=== PATIENT | female | born 1960 | race Caucasian/White ===

== ENCOUNTER 2023-11-20 17:22 | Inpatient (IN) | payer MEDICAID ==
[~2023-11-20] VITALS: Ht 165.1 cm; Wt 101.0 kg
[2023-11-20 18:56] LABS: BASOPHILS % (AUTO) 0.6 % (0-1); EOSINOPHILS # (AUTO) 0.2 X10'3 (0-0.9); EOSINOPHILS % (AUTO) 4.1 % (0-6); HEMATOCRIT 42.3 % (35.0-45.0); HEMOGLOBIN 14.2 g/dl (12.0-16.0); LYMPHOCYTES # (AUTO) 1.9 X10'3 (1.1-4.8); LYMPHOCYTES % (AUTO) 32.1 % (21-51); MEAN CORPUSCULAR HEMOGLOBIN 29.4 PG (27.0-31.0); MEAN CORPUSCULAR HGB CONC 33.6 g/dL (33.0-36.5); MEAN CORPUSCULAR VOLUME 87.4 FL (78-98); MEAN PLATELET VOLUME 7.4 FL (7.4-10.4); MONOCYTES # (AUTO) 0.5 X10'3 (0-0.9); MONOCYTES % (AUTO) 8.3 % (2-12); NEUTROPHILS # (AUTO) 3.3 X10'3 (1.8-7.7); NEUTROPHILS % (AUTO) 54.9 % (42-75); PLATELET COUNT 168 X10'3 (140-440); RED BLOOD COUNT 4.83 X10'6 (4.20-5.60)
[2023-11-20 19:20] LABS: ALBUMIN 3.8 G/DL (3.4-5.0); ANION GAP 9 (8-16); BLOOD UREA NITROGEN 19 MG/DL (7-18); BUN/CREATININE RATIO 22.9 (10.0-20.0); CALCIUM 8.7 MG/DL (8.5-10.1); CHLORIDE 106 MMOL/L (99-107); CREATININE 0.83 MG/DL (0.40-0.90); GLUCOSE 110 MG/DL (70-104); MAGNESIUM 2.1 MG/DL (1.5-2.4); POTASSIUM 3.7 MMOL/L (3.5-5.1); PRO BRAIN NATRIURETIC PEPTIDE 930 PG/ML (0-125); SODIUM 144 MMOL/L (135-145); TOTAL CARBON DIOXIDE 29.3 MMOL/L (24-32); eCRCL 62 ML/MIN; eGFR 69 ML/MIN
[2023-11-20] MEDS ORDERED: niCARdipine I.V. 50 MG in normal saline 250ml IV soln 230 ML IV SCH (20:45)
[2023-11-20] MEDS ORDERED: NORMAL SALINE IV SCH (20:55)
[2023-11-20] MEDS ORDERED: [UNRECOGNIZED DRUG - OTHER] IV SCH (20:55)
[2023-11-20] MEDS ORDERED: niCARDipine-NS 40mg/200ml IVPB 200 ML IV SCH (20:55)
[2023-11-20 20:57] LABS: D-DIMER 0.43 MG/L FEU (0-0.50)
[2023-11-20] MEDS ORDERED: temazepam 15mg capsule PO PRN (21:00)
[2023-11-20] MEDS: furosemide 10 MG/1 ML 10ml inj IV ONE (21:06)
[2023-11-20] MEDS ORDERED: diphenhydrAMINE 50 mg/ml inj IV PRN (22:15)
[2023-11-20] MEDS ORDERED: morphine 2 MG/ML inj. syringe IV PRN ×2 (22:15)
[2023-11-20] MEDS ORDERED: mag hydrox/Alum hydrox/simeth 30ml oral suspension PO PRN (22:15)
[2023-11-20] MEDS: sodium chloride 0.45% 1,000 ML IV SCH (22:15)
[2023-11-20] MEDS ORDERED: magnesium hydroxide 30ml (MOM) UD suspension PO PRN (22:15)
[2023-11-20] MEDS ORDERED: HYDROcodone/acetaminophen 5mg/325mg tablet PO PRN (22:15)
[2023-11-20] MEDS ORDERED: HYDROcodone/acetaminophen 10/325mg tab PO PRN (22:15)
[2023-11-20] MEDS ORDERED: bisacodyl 10mg suppository rectal RC PRN (22:15)
[2023-11-20] MEDS ORDERED: acetaminophen 650mg rectal suppository RC PRN (22:15)
[2023-11-20] MEDS ORDERED: ondansetron/PF 4mg/2ml inj IV PRN (22:15)
[2023-11-20] MEDS ORDERED: acetaminophen 325mg tablet PO PRN (22:15)
[2023-11-20] MEDS ORDERED: ondansetron 4mg rapidly disintigrating tab PO PRN (22:15)
[2023-11-20] MEDS ORDERED: DEXTROSE 15 GM of carb/4 tabs (each vial/BOTTLE has 4 tablets) PO PRN ×2 (22:35)
[2023-11-20] MEDS ORDERED: insulin Lispro (HumaLOG) vial - multi-dose SQ SCH (22:35)
[2023-11-20] MEDS: MESSAGE TO PHARMACY PO ONE (22:35)
[2023-11-20] MEDS ORDERED: glucagon, human recombinant 1mg kit SUBCUT PRN (22:35)
[2023-11-20] MEDS ORDERED: dextrose 50%-water 50ml dispensing syringe IV PRN ×2 (22:35)
[2023-11-20 22:45] LABS: HEMOGLOBIN A1C 6.2 % (4.5-6.2)
[2023-11-20 22:46] LABS: APTT 25 SECONDS (22-32); PROTHROMBIN TIME 10.6 SECONDS (9.0-12.0)
[2023-11-20 23:16] LABS: PHOSPHORUS 5.1 MG/DL (2.3-4.5); THYROID STIMULATING HORMONE 2.06 ulU/ml (0.34-4.50)
[2023-11-21] MEDS: heparin, porcine 5000 units/ml vial SQ SCH (00:44)
[2023-11-21 00:50] LABS: BILIRUBIN,URINE NEGATIVE (Neg); CLARITY,URINE CLEAR (Clear); COLOR,URINE STRAW (Yellow); GLUCOSE, URINE >=1000 mg/dl (Neg); KETONES,URINE NEGATIVE (Neg); LEUKOCYTE ESTERASE ,URINE NEGATIVE (Neg); NITRITES, URINE NEGATIVE (Neg); OCCULT BLOOD,URINE NEGATIVE (Neg); PH,URINE 5.5 (4.8-8.0); PROTEIN,URINE NEGATIVE (Neg); UROBILINOGEN,URINE 0.2 E.U/dL (0.2-1.0)
[2023-11-21 00:55] LABS: UA COLLECTION TYPE CLN CATCH MIDSTREAM
[2023-11-21 00:58] LABS: BACTERIA,URINE NONE SEEN /HPF (Neg); RBC,URINE 0-2 /HPF (0-2); SQUAMOUS EPITHELIAL CELL,UR FEW /LPF (FEW); WBC,URINE 0-4 /HPF (0-4)
[2023-11-21 01:00] LABS: STARCH,URINE FEW /HPF (NEGATIVE)
[2023-11-21] MEDS ORDERED: METF-437 PO (01:42)
[2023-11-21] MEDS ORDERED: FLUT1BLS12 (01:42)
[2023-11-21] MEDS ORDERED: ASPI-1265 PO (01:42)
[2023-11-21] MEDS ORDERED: ALBU8HFA INH (01:42)
[2023-11-21] MEDS ORDERED: GABA600T13 PO (01:42)
[2023-11-21] MEDS ORDERED: EMPA25TA PO (01:42)
[2023-11-21] MEDS ORDERED: LOSA25TA41 PO (01:42)
[2023-11-21] MEDS ORDERED: CARV25TA2 PO (01:42)
[2023-11-21] MEDS ORDERED: SERT-434 PO (01:42)
[2023-11-21] MEDS ORDERED: ATOR-2 PO (01:42)
[2023-11-21] MEDS ORDERED: LORA-949 PO (01:42)
[2023-11-21] MEDS ORDERED: albuterol 2.5 MG/3 ML nebule NEB PRN (01:55)
[2023-11-21 06:45] LABS: BASOPHILS % (AUTO) 0.2 % (0-1); EOSINOPHILS # (AUTO) 0.3 X10'3 (0-0.9); EOSINOPHILS % (AUTO) 4.8 % (0-6); HEMATOCRIT 40.9 % (35.0-45.0); HEMOGLOBIN 13.7 g/dl (12.0-16.0); LYMPHOCYTES # (AUTO) 1.9 X10'3 (1.1-4.8); LYMPHOCYTES % (AUTO) 34.2 % (21-51); MEAN CORPUSCULAR HEMOGLOBIN 29.2 PG (27.0-31.0); MEAN CORPUSCULAR HGB CONC 33.5 g/dL (33.0-36.5); MEAN CORPUSCULAR VOLUME 87.3 FL (78-98); MEAN PLATELET VOLUME 7.6 FL (7.4-10.4); MONOCYTES # (AUTO) 0.5 X10'3 (0-0.9); MONOCYTES % (AUTO) 9.7 % (2-12); NEUTROPHILS # (AUTO) 2.8 X10'3 (1.8-7.7); NEUTROPHILS % (AUTO) 51.1 % (42-75); PLATELET COUNT 158 X10'3 (140-440); RED BLOOD COUNT 4.68 X10'6 (4.20-5.60); RED CELL DISTRIBUTION WIDTH 17.1 % (11.5-14.5); WHITE BLOOD COUNT 5.4 X10'3 (4.5-11.0)
[2023-11-21 07:19] LABS: ALANINE AMINOTRANSFERASE 20 U/L (12-78); ALBUMIN 3.6 G/DL (3.4-5.0); ALBUMIN/GLOBULIN RATIO 0.9 (1.1-1.5); ALKALINE PHOSPHATASE 90 IU/L (46-116); ANION GAP 3 (8-16); ASPARTATE AMINO TRANSFERASE 20 U/L (10-37); BILIRUBIN,TOTAL 1.6 MG/DL (0.1-1.0); BLOOD UREA NITROGEN 18 MG/DL (7-18); BUN/CREATININE RATIO 21.7 (10.0-20.0); CHLORIDE 106 MMOL/L (99-107); CHOL/HDL RATIO 2.8 (0.00-4.99); CHOLESTEROL 186 MG/DL (0-200); CREATININE 0.83 MG/DL (0.40-0.90); GLUCOSE 116 MG/DL (70-104); HDL CHOLESTEROL 67 MG/DL (35-60); LDL CHOLESTEROL 90 MG/DL (50-100); POTASSIUM 3.5 MMOL/L (3.5-5.1); SODIUM 143 MMOL/L (135-145); TOTAL CARBON DIOXIDE 34.4 MMOL/L (24-32); TOTAL PROTEIN 7.4 G/DL (6.4-8.2); TRIGLYCERIDES 207 MG/DL (20-135); eCRCL 62 ML/MIN; eGFR 69 ML/MIN
[2023-11-21] MEDS ORDERED: non-formulary drug (Atorvastatin Calcium 1 TAB) PO SCH (08:00)
[2023-11-21] MEDS: docusate sod 100mg capsule PO SCH (08:00)
[2023-11-21] MEDS ORDERED: aspirin 81mg tab.chew PO SCH (08:00)
[2023-11-21] MEDS ORDERED: non-formulary drug (Carvedilol 1 TAB) PO SCH (08:00)
[2023-11-21] MEDS: losartan 25mg tablet PO SCH ×2 (08:00→08:26)
[2023-11-21] MEDS: atorvastatin 20mg tablet PO SCH (08:25)
[2023-11-21] MEDS: aspirin 81mg, enteric-coated 1 TAB TABLET.DR PO SCH (08:25)
[2023-11-21] MEDS: pantoprazole 40mg Tablet.DR PO SCH (08:25)
[2023-11-21] MEDS: sertraline 50mg tablet PO SCH (08:25)
[2023-11-21] MEDS: gabapentin 300mg capsule PO SCH (08:25)
[2023-11-21] MEDS: carVEDilol 3.125mg tablet PO SCH (08:26)
[2023-11-21] MEDS: nitroGLYCERIN 0.2mg/hour patch TD SCH (08:28)
[2023-11-21] MEDS: EMPAGLIFLOZIN 25 MG TABLET PO SCH (08:51)
[2023-11-21 11:15] VITALS: BP 150/89; PULSE 82; RESP 20; TEMP 97.4; O2SAT 98
[2023-11-21 15:00] VITALS: BP 151/102; PULSE 65; RESP 14; TEMP 97.7; O2SAT 91
[2023-11-21 16:24] VITALS: PULSE 63; RESP 14; O2SAT 94
[2023-11-21 19:00] VITALS: RESP 20
[2023-11-21] MEDS: acetaminophen 325mg tablet PO PRN (19:28)
[2023-11-22] VITALS (7 sets, daily range): BP systolic 159–179; BP diastolic 79–101; PULSE 61–70; RESP 13–20; TEMP 97.7; O2SAT 93–100
[2023-11-22 06:17] LABS: BASOPHILS # (AUTO) 0.1 X10'3 (0-0.2); EOSINOPHILS # (AUTO) 0.2 X10'3 (0-0.9); EOSINOPHILS % (AUTO) 3.9 % (0-6); HEMATOCRIT 41.1 % (35.0-45.0); HEMOGLOBIN 13.7 g/dl (12.0-16.0); LYMPHOCYTES # (AUTO) 2.2 X10'3 (1.1-4.8); LYMPHOCYTES % (AUTO) 42.5 % (21-51); MEAN CORPUSCULAR HGB CONC 33.4 g/dL (33.0-36.5); MEAN CORPUSCULAR VOLUME 86.8 FL (78-98); MEAN PLATELET VOLUME 7.7 FL (7.4-10.4); MONOCYTES # (AUTO) 0.5 X10'3 (0-0.9); MONOCYTES % (AUTO) 10.1 % (2-12); NEUTROPHILS # (AUTO) 2.3 X10'3 (1.8-7.7); NEUTROPHILS % (AUTO) 42.5 % (42-75); PLATELET COUNT 163 X10'3 (140-440); RED BLOOD COUNT 4.74 X10'6 (4.20-5.60); RED CELL DISTRIBUTION WIDTH 16.9 % (11.5-14.5); WHITE BLOOD COUNT 5.3 X10'3 (4.5-11.0)
[2023-11-22 06:31] LABS: ALANINE AMINOTRANSFERASE 19 U/L (12-78); ALBUMIN 3.5 G/DL (3.4-5.0); ALBUMIN/GLOBULIN RATIO 0.9 (1.1-1.5); ALKALINE PHOSPHATASE 82 IU/L (46-116); ANION GAP 1 (8-16); ASPARTATE AMINO TRANSFERASE 21 U/L (10-37); BILIRUBIN,TOTAL 1.5 MG/DL (0.1-1.0); BLOOD UREA NITROGEN 18 MG/DL (7-18); BUN/CREATININE RATIO 23.1 (10.0-20.0); CALCIUM 8.4 MG/DL (8.5-10.1); CHLORIDE 102 MMOL/L (99-107); CREATININE 0.78 MG/DL (0.40-0.90); GLUCOSE 115 MG/DL (70-104); POTASSIUM 3.7 MMOL/L (3.5-5.1); SODIUM 139 MMOL/L (135-145); TOTAL CARBON DIOXIDE 35.6 MMOL/L (24-32); TOTAL PROTEIN 7.2 G/DL (6.4-8.2); eCRCL 66 ML/MIN; eGFR 74 ML/MIN
[2023-11-22] MEDS: hydrALAZINE 20mg/ml inj. IV PRN (11:51)
[2023-11-22] MEDS ORDERED: fentaNYL/PF 50MCG/1 ML 2ML syringe ONE (14:50)
[2023-11-22] MEDS ORDERED: midazolam 1 mg/ML 2ml injection ONE (14:50)
[2023-11-22] MEDS ORDERED: LIDOcaine 1% 30ml preserv. free vial ONE (14:50)
[2023-11-22] MEDS ORDERED: iohexol 350MG/ML 100ml bottle IV ONE ×2 (14:51→15:45)
[2023-11-22 15:57] LABS: ISTAT HGB ART 13.3 g/dl (12.0-16.0); ISTAT Hct ART 39 %PCV (35-45); ISTAT O2 SATURATION ARTERIAL 79 % (95-98); ISTAT SOURCE ART
[2023-11-22] MEDS: diphenhydrAMINE 25mg capsule PO PRN (22:15)
[2023-11-23 02:00] VITALS: BP 142/77; PULSE 67; RESP 16; TEMP 97.1; O2SAT 90
[2023-11-23 06:00] VITALS: BP 119/70; PULSE 70; RESP 20; TEMP 98.1; O2SAT 94
[2023-11-23 08:00] VITALS: RESP 18
[2023-11-23 08:08] LABS: BASOPHILS % (AUTO) 0.4 % (0-1); EOSINOPHILS # (AUTO) 0.2 X10'3 (0-0.9); EOSINOPHILS % (AUTO) 3.1 % (0-6); HEMATOCRIT 40.8 % (35.0-45.0); HEMOGLOBIN 13.6 g/dl (12.0-16.0); LYMPHOCYTES # (AUTO) 1.4 X10'3 (1.1-4.8); LYMPHOCYTES % (AUTO) 22.5 % (21-51); MEAN CORPUSCULAR HEMOGLOBIN 29.3 PG (27.0-31.0); MEAN CORPUSCULAR HGB CONC 33.3 g/dL (33.0-36.5); MEAN CORPUSCULAR VOLUME 88.1 FL (78-98); MONOCYTES # (AUTO) 0.5 X10'3 (0-0.9); MONOCYTES % (AUTO) 7.7 % (2-12); NEUTROPHILS # (AUTO) 4.1 X10'3 (1.8-7.7); NEUTROPHILS % (AUTO) 66.3 % (42-75); PLATELET COUNT 177 X10'3 (140-440); RED BLOOD COUNT 4.63 X10'6 (4.20-5.60); RED CELL DISTRIBUTION WIDTH 16.7 % (11.5-14.5); WHITE BLOOD COUNT 6.1 X10'3 (4.5-11.0)
[2023-11-23 08:13] LABS: ALANINE AMINOTRANSFERASE 19 U/L (12-78); ALBUMIN 3.4 G/DL (3.4-5.0); ALBUMIN/GLOBULIN RATIO 0.9 (1.1-1.5); ALKALINE PHOSPHATASE 81 IU/L (46-116); ANION GAP 11 (8-16); ASPARTATE AMINO TRANSFERASE 14 U/L (10-37); BILIRUBIN,TOTAL 1.4 MG/DL (0.1-1.0); BLOOD UREA NITROGEN 19 MG/DL (7-18); CALCIUM 8.7 MG/DL (8.5-10.1); CHLORIDE 106 MMOL/L (99-107); CREATININE 0.95 MG/DL (0.40-0.90); GLUCOSE 125 MG/DL (70-104); POTASSIUM 3.7 MMOL/L (3.5-5.1); SODIUM 145 MMOL/L (135-145); TOTAL CARBON DIOXIDE 27.9 MMOL/L (24-32); TOTAL PROTEIN 7.1 G/DL (6.4-8.2); eCRCL 54 ML/MIN; eGFR 59 ML/MIN
[2023-11-23 11:00] VITALS: BP 121/76; PULSE 66; RESP 18; TEMP 98.2; O2SAT 92
[2023-11-26 07:16] LABS: ISTAT HGB MIX 14.3 g/dl (12.0-16.0); ISTAT Hct MIX 42 %PCV (35-45); ISTAT O2 SATURATION MIX VENOUS 60 % (60-80); ISTAT SOURCE VEN
== END 2023-11-23 16:51 | disposition home health service (06) | DRG 192 ==
LOC: ER 17:23 → ED HOLD 22:24 → EDBEDREQ 11-21 10:17 → PCU 3S 11-21 11:00
PROVIDERS: ADMIT Family Medicine; ATTEND Family Medicine
PROC: 4A023N8 Measurement of Cardiac Sampling and Pressure, Bilateral, Percutaneous Approach (ICD-10-PCS; principal; 2023-11-22)
PROC: B2111ZZ Fluoroscopy of Multiple Coronary Arteries using Low Osmolar Contrast (ICD-10-PCS; 2023-11-22)
PROC: B2181ZZ Fluoroscopy of Left Internal Mammary Bypass Graft using Low Osmolar Contrast (ICD-10-PCS; 2023-11-22)
PROC: B2131ZZ Fluoroscopy of Multiple Coronary Artery Bypass Grafts using Low Osmolar Contrast (ICD-10-PCS; 2023-11-22)
PROC: B41F1ZZ Fluoroscopy of Right Lower Extremity Arteries using Low Osmolar Contrast (ICD-10-PCS; 2023-11-22)
DX: I35.0 Nonrheumatic aortic (valve) stenosis (principal); J96.01 Acute respiratory failure with hypoxia; N17.9 Acute kidney failure, unspecified; E66.9 Obesity, unspecified; E78.5 Hyperlipidemia, unspecified; I25.10 Atherosclerotic heart disease of native coronary artery without angina pectoris; I16.1 Hypertensive emergency; I25.82 Chronic total occlusion of coronary artery; N18.30 Chronic kidney disease, stage 3 unspecified; J44.9 Chronic obstructive pulmonary disease, unspecified; I12.9 Hypertensive chronic kidney disease with stage 1 through stage 4 chronic kidney disease, or unspecified chronic kidney disease; E11.22 Type 2 diabetes mellitus with diabetic chronic kidney disease; M17.12 Unilateral primary osteoarthritis, left knee; F32.A Depression, unspecified; G89.4 Chronic pain syndrome; Z68.37 Body mass index [BMI] 37.0-37.9, adult; Z95.1 Presence of aortocoronary bypass graft; Z88.8 Allergy status to other drugs, medicaments and biological substances; Z91.040 Latex allergy status
CPT/HCPCS: 36415; 71045; 80048; 80053; 80061; 81001; 82803; 82948; 83036; 83735; 83880; 84100; 84443; 84484; 85014; 85025; 85379; 85610; 85730; 87081; 93005; 93306; 93457; 94760; 99152; 99153; 99285; A6258; A6446; A6449; C1751; C1760; G0378; J0360; J1644; J1940; J2250; J3010; J3490; J7030; Q0163; Q9967

== ENCOUNTER → 2024-01-02 | Outpatient (CLI) | payer MEDICAID ==
[~2024-01-02] MED LIST: ALBU8HFA INH; ASPI-1265 PO; ATOR-2 PO; CARV25TA2 PO; EMPA25TA PO; FLUT1BLS12; GABA600T13 PO; IODIXANOL 320 MG/ML INFUS..BTL 100ML IV ONE; LORA-949 PO; LOSA25TA41 PO; METF-437 PO; SERT-434 PO
[2024-01-02 11:17] LABS: BASOPHILS % (AUTO) 0.4 % (0-1); EOSINOPHILS # (AUTO) 0.2 X10'3 (0-0.9); EOSINOPHILS % (AUTO) 3.9 % (0-6); HEMATOCRIT 42.3 % (35.0-45.0); HEMOGLOBIN 14.2 g/dl (12.0-16.0); LYMPHOCYTES # (AUTO) 1.7 X10'3 (1.1-4.8); LYMPHOCYTES % (AUTO) 29.1 % (21-51); MEAN CORPUSCULAR HEMOGLOBIN 29.3 PG (27.0-31.0); MEAN CORPUSCULAR HGB CONC 33.5 g/dL (33.0-36.5); MEAN CORPUSCULAR VOLUME 87.6 FL (78-98); MEAN PLATELET VOLUME 8.2 FL (7.4-10.4); MONOCYTES # (AUTO) 0.5 X10'3 (0-0.9); MONOCYTES % (AUTO) 8.6 % (2-12); NEUTROPHILS # (AUTO) 3.3 X10'3 (1.8-7.7); PLATELET COUNT 180 X10'3 (140-440); RED BLOOD COUNT 4.83 X10'6 (4.20-5.60); RED CELL DISTRIBUTION WIDTH 16.6 % (11.5-14.5); WHITE BLOOD COUNT 5.7 X10'3 (4.5-11.0)
[2024-01-02 11:27] LABS: APTT 27 SECONDS (22-32); PROTHROMBIN TIME 10.8 SECONDS (9.0-12.0)
[2024-01-02 11:47] LABS: ALANINE AMINOTRANSFERASE 19 U/L (12-78); ALBUMIN 3.7 G/DL (3.4-5.0); ALBUMIN/GLOBULIN RATIO 0.9 (1.1-1.5); ALKALINE PHOSPHATASE 95 IU/L (46-116); ANION GAP 11 (8-16); ASPARTATE AMINO TRANSFERASE 16 U/L (10-37); BILIRUBIN,TOTAL 1.1 MG/DL (0.1-1.0); BLOOD UREA NITROGEN 19 MG/DL (7-18); BUN/CREATININE RATIO 20.2 (10.0-20.0); CALCIUM 8.4 MG/DL (8.5-10.1); CHLORIDE 105 MMOL/L (99-107); CREATININE 0.94 MG/DL (0.40-0.90); GLUCOSE 171 MG/DL (70-104); POTASSIUM 3.7 MMOL/L (3.5-5.1); SODIUM 143 MMOL/L (135-145); eGFR 60 ML/MIN
== END | disposition home or self-care (01) ==
LOC: 64 CT 10:27
PROVIDERS: ATTEND Internal Medicine Cardiovascular Disease
DX: I35.0 Nonrheumatic aortic (valve) stenosis (principal); R06.02 Shortness of breath; I65.29 Occlusion and stenosis of unspecified carotid artery; K57.30 Diverticulosis of large intestine without perforation or abscess without bleeding; M47.815 Spondylosis without myelopathy or radiculopathy, thoracolumbar region; I51.7 Cardiomegaly; K80.80 Other cholelithiasis without obstruction; K44.9 Diaphragmatic hernia without obstruction or gangrene; I70.0 Atherosclerosis of aorta; Z95.1 Presence of aortocoronary bypass graft
CPT/HCPCS: 36415; 71046; 71275; 74174; 75572; 80053; 85025; 85610; 85730; 94010; 94727; 94729; J3490; Q9967

== ENCOUNTER 2024-03-20 09:01 | Inpatient (IN) | payer MEDICAID ==
[2024-03-17 11:50] LABS: BILIRUBIN,URINE NEGATIVE (Neg); CLARITY,URINE CLOUDY (Clear); COLOR,URINE YELLOW (Yellow); GLUCOSE, URINE >=1000 mg/dl (Neg); KETONES,URINE NEGATIVE (Neg); LEUKOCYTE ESTERASE ,URINE NEGATIVE (Neg); NITRITES, URINE NEGATIVE (Neg); OCCULT BLOOD,URINE NEGATIVE (Neg); PROTEIN,URINE NEGATIVE (Neg); UROBILINOGEN,URINE 0.2 E.U/dL (0.2-1.0)
[2024-03-17 12:00] LABS: UA COLLECTION TYPE CLN CATCH MIDSTREAM
[2024-03-17 12:00] LABS: BASOPHILS % (AUTO) 0.5 % (0-1); EOSINOPHILS # (AUTO) 0.3 X10'3 (0-0.9); EOSINOPHILS % (AUTO) 4.2 % (0-6); LYMPHOCYTES # (AUTO) 1.7 X10'3 (1.1-4.8); LYMPHOCYTES % (AUTO) 27.1 % (21-51); MEAN CORPUSCULAR HEMOGLOBIN 28.9 PG (27.0-31.0); MEAN CORPUSCULAR HGB CONC 33.1 g/dL (33.0-36.5); MEAN CORPUSCULAR VOLUME 87.5 FL (78-98); MEAN PLATELET VOLUME 8.1 FL (7.4-10.4); MONOCYTES # (AUTO) 0.5 X10'3 (0-0.9); MONOCYTES % (AUTO) 8.3 % (2-12); NEUTROPHILS # (AUTO) 3.7 X10'3 (1.8-7.7); NEUTROPHILS % (AUTO) 59.9 % (42-75); PRE OP HEMATOCRIT 41.9 % (35.0-45.0); PRE OP HEMOGLOBIN 13.8 g/dL (12.0-16.0); PRE OP PLATELET COUNT 187 X10'3 (140-440); PRE OP WHITE BLOOD COUNT 6.1 10'3 (4.8-10.8); RED BLOOD COUNT 4.79 X10'6 (4.20-5.60); RED CELL DISTRIBUTION WIDTH 16.7 % (11.5-14.5)
[2024-03-17 12:01] LABS: PRE OP PROTIME 10.4 SECONDS (9.0-12.0)
[2024-03-17 12:01] LABS: SQUAMOUS EPITHELIAL CELL,UR MANY /LPF (FEW)
[2024-03-17 12:02] LABS: BACTERIA,URINE 3+ /HPF (Neg); RBC,URINE 0-2 /HPF (0-2)
[2024-03-17 12:10] LABS: ALBUMIN 3.6 G/DL (3.4-5.0); ALBUMIN/GLOBULIN RATIO 0.9 (1.1-1.5); ALKALINE PHOSPHATASE 102 IU/L (46-116); BLOOD UREA NITROGEN 24 MG/DL (7-18); BUN/CREATININE RATIO 26.1 (10.0-20.0); CHLORIDE 108 MMOL/L (99-107); CREATININE 0.92 MG/DL (0.40-0.90); HEMOGLOBIN A1C 6.4 % (4.5-6.2); PRE OP ALT 21 U/L (30-65); PRE OP ANION GAP 10 (8-16); PRE OP AST 17 U/L (10-37); PRE OP GLUCOSE 107 MG/DL (70-104); PRE OP POTASSIUM 4.1 MMOL/L (3.4-5.1); PRE OP SODIUM 144 MMOL/L (135-145); PRO BRAIN NATRIURETIC PEPTIDE 600 PG/ML (0-125); TOTAL CARBON DIOXIDE 26.4 MMOL/L (24-32); TOTAL PROTEIN 7.6 G/DL (6.4-8.2); eGFR 61 ML/MIN
[~2024-03-20] VITALS: Ht 165.1 cm; Wt 97.2 kg
[2024-03-20] VITALS (34 sets, daily range): BP systolic 115–171; BP diastolic 59–98; PULSE 4–77; RESP 10–18; TEMP 97.2–98.1; O2SAT 61–100
[2024-03-20] MEDS: nitroPRUSSIDE (NIPRIDE) (200MCG/ML) 100ML Drip IV SCH (05:30)
[2024-03-20] MEDS: ringers solution, lacted 1,000 ML IV SCH (05:30)
[2024-03-20] MEDS: phenylephrine inj 50 MG in normal saline 250ml IV solN IV SCH (05:30)
[~2024-03-20 09:01] MED LIST changes: +DOCUMENT DATE & TIME OF BETA-BLOCKER PO ONE; -FLUT1BLS12; +FLUT1BLS12 PO; -IODIXANOL 320 MG/ML INFUS..BTL 100ML IV ONE; +albuterol 2.5 MG/3 ML nebule NEB PRN; +famotidine 20mg tablet PO ONE; +ondansetron/PF 4mg/2ml inj IV PRN
[2024-03-20] MEDS ORDERED: ringers solution, lacted 1,000 ML IV SCH (09:45)
[2024-03-20] MEDS ORDERED: meperidine/PF 25mg/ml syringe IV PRN ×2 (09:45)
[2024-03-20] MEDS ORDERED: enalaprilat dihydrate 2.5mg/2ml vial IV PRN (09:45)
[2024-03-20] MEDS ORDERED: morphine 2 MG/ML inj. syringe IV PRN (09:45)
[2024-03-20] MEDS ORDERED: proCHLORperazine 10 MG/2 ml inj IV PRN ×2 (09:45→13:35)
[2024-03-20] MEDS ORDERED: ondansetron/PF 4mg/2ml inj IV PRN ×2 (09:45→13:35)
[2024-03-20] MEDS ORDERED: labetalol 20mg/4ml (5mg/ml) syringe IV PRN ×2 (09:45→13:35)
[2024-03-20] MEDS: aspirin 325mg tablet PO ONE (09:53)
[2024-03-20] MEDS: vancomycin 1,500 MG in NS 300ml IV soln IV ONE (09:56)
[2024-03-20] MEDS ORDERED: famotidine 20mg tablet PO ONE (10:00)
[2024-03-20] MEDS ORDERED: LIDOcaine 1% (10mg/ml) 2ml vial ONE ×2 (11:46→12:08)
[2024-03-20] MEDS ORDERED: fentaNYL/PF 50MCG/1 ML 2ML syringe ONE (11:50)
[2024-03-20] MEDS ORDERED: albuterol 2.5 MG/3 ML nebule NEB PRN (11:50)
[2024-03-20] MEDS ORDERED: midazolam 1 mg/ML 2ml injection ONE (11:51)
[2024-03-20] MEDS ORDERED: LIDOcaine 1%/PF 5ML 10 MG/ML VIAL ONE (11:53)
[2024-03-20] MEDS ORDERED: propofol inj 20 ML IV ONE (11:53)
[2024-03-20] MEDS ORDERED: iohexol 350MG/ML 100ml bottle IV ONE (11:53)
[2024-03-20] MEDS ORDERED: heparin 1,000 UNITS/NS 500ml 1,500 ML ONE (11:53)
[2024-03-20] MEDS ORDERED: LIDOcaine 1% 30ml preserv. free vial ONE (11:55)
[2024-03-20] MEDS ORDERED: sevoflurane 250ml liquid IH ONE (12:09)
[2024-03-20] MEDS: cefazolin 2gm/D5W 100mL 100 ML IV ONE (12:30)
[2024-03-20] MEDS: gabapentin 300mg capsule PO SCH (13:00)
[2024-03-20] MEDS: protamine sulfate 10mg/ml inj. ONE (13:01)
[2024-03-20] MEDS ORDERED: ALPRAZolam 0.25mg tablet PO PRN (13:35)
[2024-03-20] MEDS ORDERED: potassium Cl 20mEq/100mL bag 100 ML IV PRN (13:35)
[2024-03-20] MEDS ORDERED: potassium Cl 40MEQ/1/2NS 520ml 520 ML IV PRN (13:35)
[2024-03-20] MEDS ORDERED: dextrose 50%-water 50ml dispensing syringe IV PRN ×2 (13:35)
[2024-03-20] MEDS ORDERED: docusate sod 100mg capsule PO PRN (13:35)
[2024-03-20] MEDS ORDERED: magnesium 2GM in 50ml NS 50 ML IV PRN (13:35)
[2024-03-20] MEDS ORDERED: potassium Cl 40MEQ/270ML bag 250 ML IV PRN (13:35)
[2024-03-20] MEDS ORDERED: acetaminophen 325mg tablet PO PRN (13:35)
[2024-03-20] MEDS ORDERED: DEXTROSE 15 GM of carb/4 tabs (each vial/BOTTLE has 4 tablets) PO PRN ×2 (13:35)
[2024-03-20] MEDS ORDERED: pantoprazole 40mg Tablet.DR PO PRN (13:35)
[2024-03-20] MEDS ORDERED: potassium CL 10mEq/100ml bag 100 ML IV PRN (13:35)
[2024-03-20] MEDS ORDERED: glucagon, human recombinant 1mg kit SUBCUT PRN (13:35)
[2024-03-20] MEDS ORDERED: magnesium 4gm in 100ml NS 100 ML IV PRN (13:35)
[2024-03-20] MEDS ORDERED: diphenhydrAMINE 25mg capsule PO PRN (13:35)
[2024-03-20] MEDS ORDERED: meperidine/PF 25mg/ml syringe ONE (13:53)
[2024-03-20] MEDS: hydrALAZINE 20mg/ml inj. IV PRN (14:20)
[2024-03-20] MEDS: meperidine/PF 25mg/ml syringe IV PRN (14:44)
[2024-03-20] MEDS: morphine 4 MG/ML inj SYRINge IV PRN (15:03)
[2024-03-20] MEDS: sod chloride 0.9% 10ml flush syringe IV SCH (16:00)
[2024-03-20] MEDS: INSULIN LISPRO 100 UNIT/ML INSULN.PEN MULTI-DOSE SQ SCH (16:15)
[2024-03-20] MEDS ORDERED: INSULIN LISPRO 100 UNIT/ML INSULN.PEN MULTI-DOSE SQ SCH (17:00)
[2024-03-20] MEDS: ceFAZolin 1GM/D5W- ADD-VANTAGE 50 ML IV SCH (19:59)
[2024-03-20] MEDS: SALMETEROL PO SCH (20:00)
[2024-03-20] MEDS: FLUTICASONE PROPION PO SCH (20:00)
[2024-03-20] MEDS: HYDROcodone/acetaminophen 5mg/325mg tablet PO PRN (20:11)
[2024-03-20] MEDS: vancomycin/NS 1 GM ADD-VANTAGE 250 ML IV SCH (22:31)
[2024-03-20] MEDS: atorvastatin 20mg tablet PO SCH (22:33)
[2024-03-20] MEDS: carVEDilol 12.5mg tablet PO SCH (22:33)
[2024-03-21 02:00] VITALS: BP 125/58; PULSE 68; RESP 16; TEMP 97.4; O2SAT 95
[2024-03-21 06:00] VITALS: BP 98/56; PULSE 63; RESP 11; TEMP 97.7; O2SAT 93
[2024-03-21 06:30] VITALS: O2SAT 90
[2024-03-21] MEDS: normal saline 1000ml 1,000 ML IV SCH (07:08)
[2024-03-21] MEDS: loratadine 10mg tablet PO SCH (07:24)
[2024-03-21] MEDS: aspirin 81mg tab.chew PO SCH ×2 (07:24→08:30)
[2024-03-21] MEDS: sertraline 50mg tablet PO SCH (07:24)
[2024-03-21 07:38] LABS: BASOPHILS % (AUTO) 0.3 % (0-1); EOSINOPHILS # (AUTO) 0.1 X10'3 (0-0.9); EOSINOPHILS % (AUTO) 1.6 % (0-6); HEMATOCRIT 37.9 % (35.0-45.0); HEMOGLOBIN 12.3 g/dl (12.0-16.0); LYMPHOCYTES % (AUTO) 16.5 % (21-51); MEAN CORPUSCULAR HEMOGLOBIN 28.7 PG (27.0-31.0); MEAN CORPUSCULAR HGB CONC 32.6 g/dL (33.0-36.5); MEAN CORPUSCULAR VOLUME 88.1 FL (78-98); MEAN PLATELET VOLUME 8.2 FL (7.4-10.4); MONOCYTES # (AUTO) 0.5 X10'3 (0-0.9); MONOCYTES % (AUTO) 8.4 % (2-12); NEUTROPHILS # (AUTO) 4.6 X10'3 (1.8-7.7); NEUTROPHILS % (AUTO) 73.2 % (42-75); PLATELET COUNT 143 X10'3 (140-440); RED CELL DISTRIBUTION WIDTH 16.8 % (11.5-14.5); WHITE BLOOD COUNT 6.3 X10'3 (4.5-11.0)
[2024-03-21 07:58] LABS: ALANINE AMINOTRANSFERASE 19 U/L (12-78); ALBUMIN 2.9 G/DL (3.4-5.0); ALBUMIN/GLOBULIN RATIO 0.8 (1.1-1.5); ALKALINE PHOSPHATASE 84 IU/L (46-116); ANION GAP 7 (8-16); ASPARTATE AMINO TRANSFERASE 16 U/L (10-37); BILIRUBIN,TOTAL 1.1 MG/DL (0.1-1.0); BLOOD UREA NITROGEN 17 MG/DL (7-18); BUN/CREATININE RATIO 18.5 (10.0-20.0); CALCIUM 8.3 MG/DL (8.5-10.1); CHLORIDE 106 MMOL/L (99-107); CREATININE 0.92 MG/DL (0.40-0.90); GLUCOSE 137 MG/DL (70-104); MAGNESIUM 1.9 MG/DL (1.5-2.4); POTASSIUM 3.4 MMOL/L (3.5-5.1); PRO BRAIN NATRIURETIC PEPTIDE 1284 PG/ML (0-125); SODIUM 139 MMOL/L (135-145); TOTAL CARBON DIOXIDE 26.1 MMOL/L (24-32); TOTAL PROTEIN 6.4 G/DL (6.4-8.2); eCRCL 56 ML/MIN; eGFR 61 ML/MIN
[2024-03-21] MEDS: losartan 25mg tablet PO SCH (08:00)
[2024-03-21] MEDS: potassium Cl 20 mEq SR tablet PO PRN (08:29)
[2024-03-21 11:00] VITALS: BP 122/65; PULSE 59; RESP 13; TEMP 97.8; O2SAT 95
[2024-03-21 12:00] VITALS: PULSE 60; RESP 16; O2SAT 94
== END 2024-03-21 16:01 | disposition home or self-care (01) | DRG 183 ==
LOC: PAS IN 09:01 → PCU 3S 15:59
PROVIDERS: ADMIT Internal Medicine Cardiovascular Disease; ATTEND Internal Medicine Cardiovascular Disease
PROC: B41FZZZ Fluoroscopy of Right Lower Extremity Arteries (ICD-10-PCS; 2024-03-20)
PROC: B41GZZZ Fluoroscopy of Left Lower Extremity Arteries (ICD-10-PCS; 2024-03-20)
PROC: B4101ZZ Fluoroscopy of Abdominal Aorta using Low Osmolar Contrast (ICD-10-PCS; 2024-03-20)
PROC: 5A1223Z Performance of Cardiac Pacing, Continuous (ICD-10-PCS; 2024-03-20)
PROC: 02RF38Z Replacement of Aortic Valve with Zooplastic Tissue, Percutaneous Approach (ICD-10-PCS; principal; 2024-03-20 12:09)
DX: I35.0 Nonrheumatic aortic (valve) stenosis (principal); I50.33 Acute on chronic diastolic (congestive) heart failure; Z00.6 Encounter for examination for normal comparison and control in clinical research program; E11.9 Type 2 diabetes mellitus without complications; I11.0 Hypertensive heart disease with heart failure; E78.5 Hyperlipidemia, unspecified; I25.10 Atherosclerotic heart disease of native coronary artery without angina pectoris; J44.9 Chronic obstructive pulmonary disease, unspecified; Z79.84 Long term (current) use of oral hypoglycemic drugs; Z95.1 Presence of aortocoronary bypass graft
CPT/HCPCS: 33361; 36415; 71045; 71046; 76937; 80053; 81001; 82948; 83036; 83735; 83880; 85025; 85347; 85610; 85730; 86885; 86900; 86901; 86920; 87081; 87088; 93005; 93308; 94760; A4618; A6258; A6449; C1756; C1760; C1894; G0378; J0360; J0690; J1644; J1815; J2175; J2250; J2270; J2371; J2704; J2720; J3010; J3370; J3490; J7030; J7040; J7050; J7120; P9016; Q9967